=== PATIENT | female | born 1940 | race Caucasian/White ===

== ENCOUNTER → 2016-08-20 | Outpatient (CLI) | payer MEDICARE, OTHER ==
[~2016-08-20] MED LIST: ATEN50TA2 OR; ESTR125TA OR; HYDR25TA6 OR; MULTIVIT OR; NAPR500T OR; NEXI40GR OR; NORV5TAB OR; PREG50CA OR; TRAM50TA2 OR; VASO20TA OR; VICO5TAB OR; VIT D 2000 OR; VITA400C OR; [UNRECOGNIZED DRUG - OTHER] OR
--- NOTE | 2016-08-21 09:14 | REP ---
CT lumbar spine without contrast: History: Lumbar stenosis. No comparison imaging. Technique: Helical scanning is acquired and 4 mm contiguous axial images are formatted at bone and soft tissue algorithms. Coronal and sagittal multiplanar re-formation images are generated and reviewed. CT findings: Lumbar vertebral body heights are preserved. There is a dextroconvex scoliotic curve in the mid to lower lumbar spine at L3-4. There is degenerative disc disease at L4-5 with collapse of the disc space, vacuum phenomena, and sclerosis in the endplates on either side of the 4-5 disc. There is a rotational deformity at L4-5 as well with the L4 vertebral body subluxed slightly to the right on the coronal reformatted images relative to L5. Axial and sagittal images at L4-5 demonstrate evidence of severe central canal stenosis due to moderate diffuse disc bulging, developmentally short pedicles, and some bilateral facet and ligamentum flavum hypertrophy. The facet hypertrophy is a little more prominent on the left than the right. The triangular thecal sac is quite compressed, 6 mm in mid sagittal AP dimension. There is disc bulging in the foraminal segment of the disc as well bilaterally producing some bilateral neural foraminal narrowing left more prominent than right. At L5-S1, there is mild diffuse disc bulging. There is mild facet hypertrophy bilaterally at L5-S1. Neural foramina are felt to be adequate. No central canal stenosis is seen. At L3-4, there is mild diffuse disc bulging. Osteoarthritic facet hypertrophy is seen bilaterally at L3-4. Canal is developmentally stenotic. The disc bulging and ligamentum flavum hypertrophy exacerbate this. AP dimension of the thecal sac in the midline is approximately 5 mm at L3-4. There is a minimal 2 mm degenerative L3-4 spondylolisthesis on sagittal reformation images. At L2-3, there is also mild to moderate central canal stenosis and diffuse disc bulging. Facets are minimally hypertrophic. At L1-2 there is mild diffuse disc bulging as well. Borderline canal size. The T12-L1 level is unremarkable. Some vascular calcification is noted in a normal caliber aorta and in the iliac vessels. Impression: 1. The dominant abnormality is severe. Spinal stenosis at L4-5 and L3-4. Moderate spinal stenosis at L2-3. Advanced degenerative disc disease is seen at L4-5. 2. There is a dextroconvex curve and there is rotational deformity at the L4-5 level best seen on coronal images. 3. Minimal 2 mm degenerative spondylolisthesis L3-4.4. Osteoarthritic facet hypertrophy at each of these levels. Bilateral neural foraminal narrowing at L4-5. Signed by Raffi Ramirez MD 08/21/2016 01:09 P
== END ==
LOC: M RAD 17:22
PROVIDERS: ATTEND Orthopaedic Surgery
DX: M48.06 Spinal stenosis, lumbar region (principal); M51.26 Other intervertebral disc displacement, lumbar region; M99.83 Other biomechanical lesions of lumbar region; M51.36 Other intervertebral disc degeneration, lumbar region; M43.16 Spondylolisthesis, lumbar region

== ENCOUNTER → 2022-02-11 | Outpatient (CLI) | payer MEDICARE, OTHER | LOC: M RAD 13:06 → M LAB 13:06 | PROVIDERS: ATTEND Physician Assistant | DX: R22.42 Localized swelling, mass and lump, left lower limb (principal) ==